=== PATIENT | male | born 1970 | race African-American/Black ===

== ENCOUNTER 2017-01-07 11:06 | Emergency (ER) | payer OTHER ==
[~2017-01-07] VITALS: Ht 182.9 cm; Wt 80.0 kg
[2017-01-07 11:08] VITALS: Ht 182.9 cm; Wt 80.0 kg
[2017-01-07] MEDS ORDERED: HALOPERIDOL 5 MG INJ IM STA (11:28)
[2017-01-07] MEDS ORDERED: LORAZEPAM 1 MG TAB PO ONE (11:30)
[2017-01-07] MEDS ORDERED: LORAZEPAM 2 MG INJ ONE (11:31)
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
--- NOTE | 2017-01-07 20:03 | QN ---
Documentation Comment Observation Note: Indication: Agitation Duration: Greater than 8 hours Family history: None The patient was observed with serial exams over the above timeframe. The patient continued to be well-appearing, and observation continued without complication. The patient is more arousable and able to be evaluated by telemetry medicine psychiatry. Pending evaluation. Patient endorsed oncoming provider. KENDRICK PATTERSON MD Jan 07, 2017 20:03
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
[2017-01-08 04:04] VITALS: TEMP 98.3
[2017-01-08 12:14] VITALS: BP 122/68; PULSE 83; RESP 18
== END 2017-01-08 19:15 | disposition short-term general hospital (02) ==
LOC: E/R 11:06 → EDBD 11:06 → E/R 01-08 19:15
DX: S01.81XA Laceration without foreign body of other part of head, initial encounter (principal); S09.8XXA Other specified injuries of head, initial encounter; F29 Unspecified psychosis not due to a substance or known physiological condition; F17.210 Nicotine dependence, cigarettes, uncomplicated; R07.9 Chest pain, unspecified; R40.2142 Coma scale, eyes open, spontaneous, at arrival to emergency department; R40.2252 Coma scale, best verbal response, oriented, at arrival to emergency department; R40.2362 Coma scale, best motor response, obeys commands, at arrival to emergency department; Y04.8XXA Assault by other bodily force, initial encounter
CPT/HCPCS: 12001; 70450; 70486; 80053; 80306; 80307; 81001; 85025; 85610; 85730; 96372; J1630; J2060; Z7502; Z7610

== ENCOUNTER 2017-02-23 18:12 | Emergency (ER) | payer OTHER ==
[~2017-02-23] VITALS: Ht 193 cm; Wt 93.5 kg
[2017-02-23 18:15] VITALS: Ht 193 cm; Wt 93.5 kg
[2017-02-23] MEDS ORDERED: HALOPERIDOL 5 MG INJ IM ONE (18:30)
[2017-02-23] MEDS ORDERED: OLANZAPINE 5 MG TAB PO ONE (19:00)
[2017-02-23 19:32] LABS: BASOPHILS % 0.7 % (0.0-2.0); EOSINOPHILS # 0.2 10^3/ul (0.0-0.5); EOSINOPHILS % 5.4 % (0.0-7.0); HEMATOCRIT 39.9 % (42.0-52.0); HEMOGLOBIN 14.2 g/dl (14.0-18.0); LYMPHOCYTES # 2.2 10^3/ul (0.8-2.9); LYMPHOCYTES % 49.3 % (15.0-51.0); MEAN CORPUSCULAR HEMOGLOBIN 27.2 pg (29.0-33.0); MEAN CORPUSCULAR HGB CONC 35.6 g/dl (32.0-37.0); MEAN CORPUSCULAR VOLUME 76.4 fl (82.0-101.0); MEAN PLATELET VOLUME 8.8 fl (7.4-10.4); MONOCYTE # 0.5 10^3/ul (0.3-0.9); MONOCYTES % 11.5 % (0.0-11.0); NEUTROPHIL # 1.5 10^3/ul (1.6-7.5); NEUTROPHILS % 33.1 % (39.0-77.0); PLATELET COUNT 271 10^3/UL (140-415); RED BLOOD COUNT 5.22 10^6/ul (4.70-6.10); RED CELL DISTRIBUTION WIDTH 13.5 % (11.5-14.5); WHITE BLOOD COUNT 4.4 10^3/ul (4.8-10.8)
[2017-02-23 19:53] LABS: ALANINE AMINOTRANSFERASE 32 IU/L (13-69); ALBUMIN 3.8 g/dl (3.3-4.9); ALBUMIN/GLOBULIN RATIO 1.18; ALKALINE PHOSPHATASE 56 IU/L (42-121); ANION GAP 16 (8-16); ASPARTATE AMINO TRANSFERASE 23 IU/L (15-46); BILIRUBIN,INDIRECT 0.3 mg/dl (0-1.1); BILIRUBIN,TOTAL 0.3 mg/dl (0.2-1.3); BLOOD UREA NITROGEN 14 mg/dl (7-20); CALCIUM 8.9 mg/dl (8.4-10.2); CARBON DIOXIDE 26 mmol/L (21-31); CHLORIDE 102 mmol/L (97-110); CREATININE 1.15 mg/dl (0.61-1.24); GLUCOSE 87 mg/dl (70-220); SODIUM 140 mmol/L (135-144)
[2017-02-23 19:56] LABS: ACETAMINOPHEN < 10.0 ug/ml (10.0-30.0); SALICYLATE < 1.0 mg/dl (5.0-30.0)
[2017-02-23 20:13] LABS: CANNABINOIDS Positive (NEGATIVE)
[2017-02-23 20:14] LABS: BARBITURATES Negative (NEGATIVE); BENZODIAZEPINES Negative (NEGATIVE); COCAINE Negative (NEGATIVE); OPIATES Negative (NEGATIVE)
--- NOTE | 2017-02-23 23:04 | ERD ---
ER Documentation Chief Complaint Chief Complaint SUICIDAL IDEATION, AUDITORY HALLUCINATIONS, HX OF PSYCH HOLDS HPI 46-year-old male presents saying that he would like a place to stay and also that he is having auditory hallucinations after using meth. Does not have any specific plan but states that he has thoughts of . Denies homicidal ideations. He says he has no physical pain but would like to eat food. ROS All systems reviewed and are negative except as per history of present illness. Allergies Allergies: Coded Allergies: No Known Allergy (Unverified , 01/09/17) PMhx/Soc History of Surgery: No Anesthesia Reaction: No Hx Neurological Disorder: No Hx Respiratory Disorders: No Hx Cardiac Disorders: No Hx Psychiatric Problems: Yes (depression, schizophrenia) Hx Miscellaneous Medical Probl: Yes Hx Alcohol Use: No Hx Substance Use: No Hx Tobacco Use: No Smoking Status: Never smoker Physical Exam Vitals Vital Signs Date Time Temp Pulse Resp B/P Pulse Ox O2 Delivery O2 Flow Rate FiO2 02/23/17 18:15 98.7 99 18 119/62 99 Physical Exam Const: [] Head: Atraumatic Eyes: Normal Conjunctiva ENT: Normal External Ears, Nose and Mouth. Neck: Full range of motion..~ No meningismus. Resp: Clear to auscultation bilaterally Cardio: Regular rate and rhythm, no murmurs Abd: Soft, non tender, non distended. Normal bowel sounds Skin: No petechiae or rashes Back: No midline or flank tenderness Ext: No cyanosis, or edema Neur: Awake and alert Psych: Normal Mood and Affect Result Diagram: 02/23/17192602/23/171926 Results 24 hrs Laboratory Tests Test 02/23/17 19:27 02/23/17 19:40 White Blood Count 4.410^3/ul Red Blood Count 5.2210^6/ul Hemoglobin 14.2g/dl Hematocrit 39.9% Mean Corpuscular Volume 76.4fl Mean Corpuscular Hemoglobin 27.2pg Mean Corpuscular Hemoglobin Concent 35.6g/dl Red Cell Distribution Width 13.5% Platelet Count 62608^3/UL Mean Platelet Volume 8.8fl Neutrophils % 33.1% Lymphocytes % 49.3% Monocytes % 11.5% Eosinophils % 5.4% Basophils % 0.7% Nucleated Red Blood Cells % 0.0/100WBC Neutrophils # 1.510^3/ul Lymphocytes # 2.210^3/ul Monocytes # 0.510^3/ul Eosinophils # 0.210^3/ul Basophils # 0.010^3/ul Nucleated Red Blood Cells # 0.010^3/ul Sodium Level 140mmol/L Potassium Level 4.0mmol/L Chloride Level 102mmol/L Carbon Dioxide Level 26mmol/L Anion Gap 16 Blood Urea Nitrogen 14mg/dl Creatinine 1.15mg/dl Glucose Level 87mg/dl Calcium Level 8.9mg/dl Total Bilirubin 0.3mg/dl Direct Bilirubin 0.00mg/dl Indirect Bilirubin 0.3mg/dl Aspartate Amino Transf (AST/SGOT) 23IU/L Alanine Aminotransferase (ALT/SGPT) 32IU/L Alkaline Phosphatase 56IU/L Total Protein 7.0g/dl Albumin 3.8g/dl Globulin 3.20g/dl Albumin/Globulin Ratio 1.18 Salicylates Level < 1.0mg/dl Acetaminophen Level < 10.0ug/ml Ethyl Alcohol Level 33.0mg/dl Urine Opiates Screen Negative Urine Barbiturates Negative Urine Amphetamines Screen POSITIVE Urine Benzodiazepines Screen Negative Urine Cocaine Screen Negative Urine Cannabinoids Positive Current Medications Medications (Trade) Dose Ordered Sig/Mary Carmen Route PRN Reason Start Time Stop Time Status Last Admin Dose Admin Haloperidol (Haldol) 3 mg ONCE ONCE IM 02/23/17 18:30 02/23/17 18:31 DC 02/23/17 19:50 Olanzapine (Zyprexa) 5 mg ONCE ONCE PO 02/23/17 19:00 02/23/17 19:01 DC 02/23/17 19:50 Procedures/MDM Eyes healthy male with claims of hallucinations that I believe this is likely related to methamphetamine use and have a high suspicion for malingering patient admits that he wants a place to stay. Workup was performed and I gave the patient 3 mg of Haldol as well as Zyprexa to get symptoms under control. He has not been evaluated by tele-psychiatry yet but I will abide by psychiatry' s recommendation either to put him on a hold or to safely discharge him. He is medically cleared and that I see no current medical issue that would preclude him from psychiatric admission if deemed necessary. Departure Diagnosis: Primary Impression: Acute psychosis Additional Impression: Amphetamine abuse Condition: Stable BAILEY FLOWER 22, 2017 23:04
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
[2017-02-24 06:20] VITALS: BP 124/68; PULSE 80; RESP 16; TEMP 98
[2017-02-25] MEDS ORDERED: HALOPERIDOL 5 MG TAB PO SCH (09:00)
== END 2017-02-24 06:37 ==
LOC: E/R 18:12
DX: F23 Brief psychotic disorder (principal); F15.10 Other stimulant abuse, uncomplicated
CPT/HCPCS: 36415; 80053; 80306; 80307; 85025; 96372; J1630; Z7502; Z7610

== ENCOUNTER 2017-04-21 00:56 | Emergency (ER) | END 2017-04-23 00:55 ==

== ENCOUNTER 2017-05-08 22:53 | Emergency (ER) | END 2017-05-09 04:30 | disposition home or self-care (01) ==